=== PATIENT | female | born 1955 | race Caucasian/White ===

== ENCOUNTER → 2017-05-12 | Outpatient (CLI) | payer MEDICARE, BC ==
[2017-05-12 16:12] LABS: Calcium 11.3 mg/dL (8.4-10.2); Potassium 4.7 mmol/L (3.5-5.1); Total Bilirubin 0.7 mg/dL (0.2-1.3); Total Protein 8.2 g/dL (6.3-8.2)
== END | disposition home or self-care (01) ==
LOC: LABWHC1 15:21
PROVIDERS: ATTEND Internal Medicine Endocrinology, Diabetes & Metabolism
DX: E21.0 Primary hyperparathyroidism (principal)
CPT/HCPCS: 36415; 80053; 82306; 83970

== ENCOUNTER → 2017-05-26 | Outpatient (CLI) | payer MEDICARE, BC ==
--- NOTE | 2017-05-26 17:43 | US ---
EXAMINATION TYPE: US thyroid st tissue head/neck DATE OF EXAM: 05/26/2017 COMPARISON: NONE CLINICAL HISTORY: E21.0 Primary Hyperparathyroidism. GLAND SIZE: Right Lobe: 4.1 x 1.5 x 1.7 cm Overall Parenchyma: homogenous Left Lobe: 3.7 x 1.2x 0.8 cm Overall Parenchyma: homogeneous Isthmus Thickness: 0.3 cm NODULES RIGHT: # of nodules measured on right: 1 1. 0.3 X 0.2 x 0.1 cm hypoechoic solid nodule at the mid pole with well-defined margins. This nodu le is wider than tall and shows no intranodular vascularity. Prior size: no prior US here LEFT: # of nodules measured on left: 0 ISTHMUS: # of nodules measured in the isthmus: 0 Parathyroid Area: Inferior to right thyroid gland is oval,solid, hyperechoic nodule = 0.5 x 0.7 x 0.5 cm. Inferior to left thyroid gland is oval, hypoechoic nodule = 1.0 x 0.6 x 0.8cm. Bilateral neck scanned, no evidence of lymphadenopathy. IMPRESSION: No dominant thyroid mass. No definite evidence of a parathyroid mass. There is a oval-shaped hypoecho ic area at the lower pole left thyroid lobe that measures 10 x 8 mm and is probably a cyst.
== END | disposition home or self-care (01) ==
LOC: RADUSWWP 16:46
PROVIDERS: ATTEND Internal Medicine Endocrinology, Diabetes & Metabolism
DX: E21.0 Primary hyperparathyroidism (principal)
CPT/HCPCS: 76536

== ENCOUNTER → 2017-07-30 | Outpatient (CLI) | payer MEDICARE, BC ==
--- NOTE | 2017-07-30 14:47 | MR ---
EXAMINATION TYPE: MR brain wo/w con DATE OF EXAM: 07/30/2017 COMPARISON: NONE HISTORY: White matter changes TECHNIQUE: Multiplanar, multisequence images of the brain and brainstem is performed without and with IV contras t, utilizing 10 mL intravenous Gadavist . FINDINGS: No diagnostic evidence of acute ischemia. Changes of chronic sinusitis noted. Mild generalized degenerative change with numerous bilateral focal areas of abnormal signal in the wh ite matter. All measure 5 mm or less. No callosal lesions. No lesions perpendicular to ventricular sy stem. Craniocervical junction is maintained. Sella turcica has a normal appearance. No evidence of cerebellopontine angle mass. Hyperostosis frontalis interna noted. IMPRESSION: 1. Diffuse nonspecific white matter changes. Differential diagnosis includes remote microvascular isc hemia, hypertension, vasculitis, demyelinating disease or sarcoidosis. Correlate clinically.
== END | disposition home or self-care (01) ==
LOC: RADMRIMAIN 12:36
PROVIDERS: ATTEND Nurse Practitioner Acute Care
DX: R90.82 White matter disease, unspecified (principal); Z88.1 Allergy status to other antibiotic agents
CPT/HCPCS: 70553; A9581

== ENCOUNTER → 2018-02-22 | Outpatient (CLI) | payer MEDICARE, BC ==
--- NOTE | 2018-02-24 08:25 | MM ---
Reason for exam: screening (asymptomatic). Last mammogram was performed 2 years and 4 months ago. History: Patient is postmenopausal and is nulliparous. Physical Findings: A clinical breast exam by your physician is recommended on an annual basis and results should be correlated with mammographic findings. MG Screening Mammo w CAD Bilateral CC and MLO view(s) were taken. Prior study comparison: November 06, 2015, bilateral MG screening mammo w CAD. April 20, 2014, bilateral MG screening mammo w CAD. There are scattered fibroglandular densities. Focal asymmetry left upper outer quadrant, developing more conspicuous. This finding is changed when compared with previous exams. ASSESSMENT: Incomplete: need additional imaging evaluation, BI-RAD 0 RECOMMENDATION: Special view mammogram of the left breast. If lesion persists on supplemental views, image directed ultrasound is recommended. [facility] will attempt to contact patient to return for supplemental views and ultrasound if indicated.
== END | disposition home or self-care (01) ==
LOC: RADMAMWWP 11:20
PROVIDERS: ATTEND Family Medicine
DX: Z12.31 Encounter for screening mammogram for malignant neoplasm of breast (principal)
CPT/HCPCS: 77067

== ENCOUNTER → 2018-03-18 | Outpatient (CLI) | payer MEDICARE, BC ==
--- NOTE | 2018-03-21 07:11 | MM ---
Reason for exam: additional evaluation requested from abnormal screening. Last mammogram was performed 1 month ago. History: Patient is postmenopausal and is nulliparous. Physical Findings: Nurse did not find any significant physical abnormalities on exam. MG Work Up Mamm w CAD LT Spot compression CC, spot compression MLO, and ML view(s) were taken of the left breast. Prior study comparison: February 22, 2018, bilateral MG screening mammo w CAD. November 06, 2015, bilateral MG screening mammo w CAD. The breast tissue is heterogeneously dense. This may lower the sensitivity of mammography. The previously seen left upper outer focal asymmetry appears as fibroglandular tissue similar to the exam of 2014. These results were verbally communicated with the patient and result sheet given to the patient on 03/18/18. ASSESSMENT: Negative, BI-RAD 1 RECOMMENDATION: Return to routine screening mammogram schedule for both breasts.
== END | disposition home or self-care (01) ==
LOC: RADMAMWWP 15:39
PROVIDERS: ATTEND Family Medicine
DX: R92.8 Other abnormal and inconclusive findings on diagnostic imaging of breast (principal)
CPT/HCPCS: 77065

== ENCOUNTER → 2018-08-17 | Outpatient (CLI) | payer MEDICARE, BC ==
--- NOTE | 2018-08-18 06:16 | MR ---
EXAMINATION TYPE: MR brain wo/w con DATE OF EXAM: 08/17/2018 COMPARISON: Prior MRI brain July 30, 2017. HISTORY: White matter changes per order. TECHNIQUE: Multiplanar, multisequence images of the brain and brainstem is performed without and with IV contras t, utilizing 9 mL intravenous Gadavist gadolinium contrast is administered intravenously. Demyelinat ing disease protocol with additional Sagittal Flair sequence performed. FINDINGS: T2 Lesions Present : Yes Approximate Number of Lesions: Approximately 50-70 scattered small lesions Locations Identified : Scattered small lesions without infratentorial involvement redemonstrated. Size of Reference Lesion(s): 1. 0.6 x 0.4 x 0.4 cm on axial image 24 and sagittal image 14 posterior left frontal lesion at level of the centrum semiovale stable. Enhancing Lesion(s) Present: No T1 Hypointense Lesion(s) Present: Yes Change from Prior: Stable Diffusion weighted images demonstrate no evidence of a recent infarct or other diffusion abnormality. There is no worrisome extra-axial fluid collection. There is mild ventricular and sulcal prominence redemonstrated consistent with mild diffuse age-related cerebral atrophy. Midline structures demonstrate normal morphology. The craniocervical junction appears within normal limits. Post contrast images demonstrate no abnormal enhancement. The dural venous sinuses appear pa tent. The visualized sinuses are clear and the globes are intact. IMPRESSION: Mild diffuse age-related cerebral atrophy with moderate nonspecific white matter changes redemonstrated. No new or enhancing lesions are seen.
--- NOTE | 2018-08-18 06:25 | MR ---
EXAMINATION TYPE: MR lumbar spine wo con DATE OF EXAM: 08/17/2018 COMPARISON: Prior MRI lumbar spine March 19, 2014. HISTORY: Low back pain per order. Low back pain and sciatica for 3 months, pain into right lower extr emity per patient. TECHNIQUE: Multiplanar, multisequence imaging of the lumbar spine is performed without IV contrast. FINDINGS: Sagittal images of the lumbar spine show vertebral body heights heights to remain satisfact ory. There is grade 1 anterolisthesis of L4 on L5 slightly more prominent versus prior. Multilevel di sc desiccation is redemonstrated. There is moderate disc space narrowing L3-L4 level with posterior M odic type II endplate changes as there is increased T1 and T2 signal and mild to moderate anterior sp urring. Posterior disc herniation is now present at this level on sagittal images with superior exten riya. There is moderate to advanced disc space narrowing with vacuum disc phenomenon and heterogeneou s Modic type II degenerative changes at L5-S1 level redemonstrated. The conus medullaris remains stab le in position ending L1-L2 disc space level. Axial images show the T12-L1 and L1-L2 levels to remain within normal limits. Axial images at the L2-L3 level redemonstrate persistent mild/moderate facet degenerative changes and ligamentum flavum hypertrophy with some effacement the posterior lateral thecal sac on axial image 1 8. Bilateral neural foramina are patent. Axial images at the L3-L4 level now show moderate facet degenerative changes with ligamentum flavum h ypertrophy more prominent from prior effacing posterior lateral thecal sac on axial image 13. There i s moderate broad disc bulge with right paracentral/lateral recess superior extrusion seen best sagitt al image 9 and axial image 15 extending 9 mm superior to the disc space effacing anterolateral thecal sac. There is mild bilateral anterior inferior neural foraminal narrowing noted. Axial images at the L4-L5 level now show moderate to advanced facet degenerative changes bilaterally with ligamentum flavum hypertrophy effacing posterior lateral thecal sac near axial image 8. There is spondylolisthesis and broad-based posterior disc protrusion causing mild right-sided neural foramina l narrowing. Spinal canal is preserved. Left-sided neural foramen is patent. Axial images at the L5-S1 level show mild to moderate facet degenerative changes bilaterally. Spinal canal is preserved. Bilateral neural foramina are patent. There is suspected prominent but simple parapelvic cyst right kidney axial image 24 measuring roughly 3.4 cm long axis slightly larger versus prior. Left kidney is nonvisualized and may be congenitally absent. Correlate clinically. IMPRESSION: Multilevel degenerative changes in lumbar spine as detailed above. More prominent spondy lolisthesis L4-L5 level is noted. More prominent right sided disc herniation L3-L4 level is likely ac counting for patient's clinical symptoms. 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
== END ==
LOC: RADMRIMAIN 15:38
PROVIDERS: ATTEND Nurse Practitioner Acute Care
DX: M54.5 Low back pain (principal); G31.9 Degenerative disease of nervous system, unspecified; R90.82 White matter disease, unspecified
CPT/HCPCS: 82565; 70553; 72148; 36415; A9581

== ENCOUNTER → 2019-03-01 | Outpatient (CLI) | payer MEDICARE ==
--- NOTE | 2019-03-03 08:25 | MM ---
Reason for exam: screening (asymptomatic). Last mammogram was performed 11 months ago. History: Patient is postmenopausal and is nulliparous. Physical Findings: A clinical breast exam by your physician is recommended on an annual basis and results should be correlated with mammographic findings. MG Screening Mammo w CAD Bilateral CC, MLO, and XCCL view(s) were taken. Prior study comparison: March 18, 2018, left breast MG work up mamm w CAD LT. February 22, 2018, bilateral MG screening mammo w CAD. The breast tissue is heterogeneously dense. This may lower the sensitivity of mammography. No significant changes when compared with prior studies. ASSESSMENT: Negative, BI-RAD 1 RECOMMENDATION: Routine screening mammogram of both breasts in 1 year.
== END | disposition home or self-care (01) ==
LOC: RADMAMWWP 15:23
PROVIDERS: ATTEND Family Medicine
DX: Z12.31 Encounter for screening mammogram for malignant neoplasm of breast (principal)
CPT/HCPCS: 77067

== ENCOUNTER → 2020-07-30 | Outpatient (CLI) | payer MEDICARE ==
--- NOTE | 2020-07-30 15:57 | US ---
EXAMINATION TYPE: US extremity nonvasc mass RT DATE OF EXAM: 07/30/2020 COMPARISON: NONE CLINICAL HISTORY: R22.32 Localized mass right upper arm. Hyperechoic mass, probable lipoma measuring 1.2 x 0.6 x 1.0cm. IMPRESSION: 1. Subcutaneous hyperechoic mass could be a lipoma. Monitoring can be performed as clinically indicat ed.
== END | disposition home or self-care (01) ==
LOC: RADUSWWP 15:25
PROVIDERS: ATTEND Family Medicine
DX: R22.32 Localized swelling, mass and lump, left upper limb (principal)

== ENCOUNTER → 2020-11-19 | Outpatient (CLI) | payer MEDICARE ==
--- NOTE | 2020-11-21 13:54 | MM ---
Reason for exam: screening (asymptomatic). Last mammogram was performed 1 year and 9 months ago. History: Patient is postmenopausal and is nulliparous. Physical Findings: A clinical breast exam by your physician is recommended on an annual basis and results should be correlated with mammographic findings. MG Screening Mammo w CAD Bilateral CC and MLO view(s) were taken. Prior study comparison: March 01, 2019, bilateral MG screening mammo w CAD. March 18, 2018, left breast MG work up mamm w CAD LT. There are scattered fibroglandular densities. No significant changes when compared with prior studies. ASSESSMENT: Negative, BI-RAD 1 RECOMMENDATION: Routine screening mammogram of both breasts in 1 year.
== END | disposition home or self-care (01) ==
LOC: RADMAMWWP 14:49
PROVIDERS: ATTEND Family Medicine
DX: Z12.31 Encounter for screening mammogram for malignant neoplasm of breast (principal)
CPT/HCPCS: 77067

== ENCOUNTER → 2022-05-14 | Outpatient (CLI) | payer MEDICARE ==
[2022-05-15 13:34] LABS: Alt. alternata IgE Class CLASS 0; Alternaria alternata IgE <0.10 kU/L (<0.10); Asperg. fumagatus IgE <0.10 kU/L (<0.10); Asperg. fumagatus IgE Class CLASS 0; Candida albicans IgE Class CLASS 0; Clad herbarum IgE <0.10 kU/L (<0.10); Clad herbarum IgE Class CLASS 0; Latex IgE Class CLASS 0; Mucor racemosus IgE <0.10 kU/L (<0.10); Mucor racemosus IgE Class CLASS 0; Penicillium chrysogenum IgE <0.10 kU/L (<0.10); Penicillium chrysogenum IgE Cl CLASS 0
== END | disposition home or self-care (01) ==
LOC: LABWHC1 15:03
PROVIDERS: ATTEND Internal Medicine Sleep Medicine
DX: Z94.4 Liver transplant status (principal); Z79.899 Other long term (current) drug therapy
CPT/HCPCS: 36415; 82785; 86001; 86003; 86606; 86609

== ENCOUNTER → 2024-05-01 | Outpatient (CLI) | payer MEDICARE ==
--- NOTE | 2024-05-01 12:52 | CT ---
EXAMINATION TYPE: CT abdomen pelvis wo con DATE OF EXAM: 05/01/2024 COMPARISON: None HISTORY: 68-year-old female diarrhea, abnormal findings on prior xray CT DLP: 652 mGycm. Automated exposure control for dose reduction was used. TECHNIQUE: Contiguous axial scanning of the abdomen and pelvis without IV contrast. Coronal and sagit vick reconstructions performed. FINDINGS: The heart is normal size of the pericardial effusion. RCA coronary artery calcifications are noted. L janelle bases clear without pleural effusion. Noncontrast appearance of the liver, adrenal glands, and pancreas show no gross abnormality. Spleen mildly enlarged at 14.7 cm measured on coronal series. There is an area of 1.4 cm nodularity at the ampulla of Vater projecting into the duodenal lumen, cor onal image 41 and axial image 35. Endoscopic evaluation can exclude an ampullary mass. Suspect previous cholecystectomy. Left kidney appears to be surgically absent. Prominent cortical lobulations throughout the right kidney. There is mild fullness of the right renal collecting system but with normal caliber right ureter. Possible some degree of chronic UPJ strictur e. No dilated small bowel, free fluid, or free air. No mesenteric or retroperitoneal lymphadenopathy. No rmal appendix. Oral contrast progressed to the distal third transverse colon. No significant stool bu rden. No pericolonic inflammatory change. Bladder urine distended. Uterus is small and anteverted. Cystic change of the bilateral ovaries. Individual cysts suspected to measure up to 3.0 cm. Left ovar y itself measures 5.3 x 4.7 x 4.2 cm, enlarged with a volume of 52 mL. Left ovary measures 4.5 x 2.3 x 2.8 cm for a volume of 14.5 mL. No abnormal fluid collection in the pelvis or pelvic lymphadenopathy. Bones: Baastrup's disease. Hypertrophic facet arthropathy with degenerative grade 1 anterolisthesis L 4-L5. Moderate degenerative disc disease L3-L4. IMPRESSION: 1. Multiple cystic lesions of the bilateral ovaries. Individual cysts measure up to 3.0 cm and the le ft ovary is overall enlarged with a volume of 52 mL. Consider more detailed assessment with pelvic ul trasound and/or female pelvic MRI. STATUARY PAINTER referral recommended. 2. 1.4 cm soft tissue nodularity at the ampulla of Vater projecting into the duodenal lumen. Endoscop y can exclude a polyp or ampullary mass. 3. Left kidney surgically absent. There is fullness of the right renal collecting system which may be transient or could be due to some degree of stenosis at the UPJ. 4. Mild splenomegaly at 14.7 cm.
== END | disposition home or self-care (01) ==
LOC: RADCTMAIN 09:43
PROVIDERS: ATTEND Family Medicine
DX: N83.201 Unspecified ovarian cyst, right side (principal); N83.202 Unspecified ovarian cyst, left side; R16.1 Splenomegaly, not elsewhere classified
CPT/HCPCS: 74176

== ENCOUNTER 2024-07-28 10:52 | Day surgery (SDC) | payer MEDICARE ==
[2024-07-26 10:48] VITALS: BMI 28.9
[2024-07-28 11:26] VITALS: TEMP 97
[2024-07-28] MEDS: LACTATED RINGERS 1,000 ML IV SCH (11:42)
[2024-07-28] MEDS: IV FLUID CONTINUATION 1,000 ML IV ONE (11:43)
[2024-07-28 11:44] LABS: Glucose,Whole Blood 103 mg/dL (70-110)
[2024-07-28] MEDS ORDERED: LIDOCAINE 2% (PF) 20 MG/ML 5 ML VIAL ONE (12:45)
[2024-07-28] MEDS ORDERED: PROPOFOL 10 MG/ML 20 ML VIAL IV ONE (12:45)
--- NOTE | 2024-07-28 13:07 | P.PCN ---
Date of Procedure: 07/28/24 Procedure(s) Performed: Brief history: Patient is a pleasant 68-year-old white female scheduled for an elective upper endoscopy as well as colonoscopy as a part of evaluation of abdominal pain and chronic diarrhea for the last 20 years duration. She has 2-5 loose watery bowel movements daily. She had a CT of the abdomen/pelvis done that showed 1.4 cm nodularity the second part of the duodenum/rule out mass. She is not scheduled for an upper endoscopy as well as colonoscopy to evaluate further. Procedure performed: Esophagogastroduodenoscopy biopsy Colonoscopy with biopsy Preoperative diagnosis: Abnormal CT of the abdomen showing 1.5 cm nodularity in the second part of the duodenum Chronic diarrhea Anesthesia: MAC Procedure: After informed consent was obtained from the patient was brought into the endoscopy unit and IV sedation was administered by anesthesia under continuous monitoring. Initially upper endoscopy was done. The Olympus GF 160 video endoscope was inserted inserted into the mouth and esophagus intubated without any difficulty and was gradually advanced into the stomach and duodenum and carefully examined. The bulb of the duodenum appeared normal. In the second part of the duodenum the ampullary orifice appeared normal however the major papula appeared very prominent and biopsies were done from this area. No abnormal mucosa identified. The scope was then withdrawn into the stomach adequately insufflated with air and upon careful examination the antrum and body, cardia and fundus appeared normal. The scope was then withdrawn into the esophagus. The GE junction was located at 40 cm to the incisors. Small hiatal hernia noted. It appeared regular with no erythema erosions or ulcerations. Rest of the esophagus appeared normal. Patient tolerated the procedure well. At this time the patient continued to remain sedation. Initial digital rectal examination was normal. Olympus CF 160 video colonoscope was then inserted into the rectum and gradually advanced to the cecum without any difficulty. Careful examination was performed as the scope was gradually being withdrawn. The prep was excellent. The cecum, ascending colon, transverse colon, descending colon, sigmoid colon and rectum appeared normal. Biopsies were done from the ascending and descending colon rule out microscopic/collagenous colitis retroflexion was performed in the rectum and no lesions were noted. Patient tolerated the procedure well. Impression: 1. Upper endoscopy revealed prominent ampulla in the second part of the duodenum but no masses identified s/p biopsy and small hiatal hernia 2. Respiratory status diverticulosis but no evidence of colitis or colorectal neoplasia Recommendations: Findings of this examination were discussed with the patient as well as her family. She was advised to follow with the biopsy results. Recommended repeat screening colonoscopy in 10 years. Follow-up in the office in 2 weeks.
[2024-07-28 13:14] VITALS: RESP 16
[2024-07-28 13:30] VITALS: BP 113/71; PULSE 77
== END 2024-07-28 14:01 | disposition home or self-care (01) ==
LOC: ORWHC2ENDO 10:52
PROVIDERS: ATTEND Internal Medicine Gastroenterology
DX: K31.89 Other diseases of stomach and duodenum (principal); K44.9 Diaphragmatic hernia without obstruction or gangrene; K57.30 Diverticulosis of large intestine without perforation or abscess without bleeding; I10 Essential (primary) hypertension; J45.909 Unspecified asthma, uncomplicated; I67.9 Cerebrovascular disease, unspecified; K21.9 Gastro-esophageal reflux disease without esophagitis; Z88.0 Allergy status to penicillin; Z91.040 Latex allergy status; Z88.9 Allergy status to unspecified drugs, medicaments and biological substances; Z79.84 Long term (current) use of oral hypoglycemic drugs; Z79.85 Long-term (current) use of injectable non-insulin antidiabetic drugs; Z79.1 Long term (current) use of non-steroidal anti-inflammatories (NSAID); Z79.899 Other long term (current) drug therapy
CPT/HCPCS: 43239; 45380; 88305

== ENCOUNTER → 2024-08-03 | Outpatient (CLI) | payer MEDICARE ==
[2024-08-03 15:35] LABS: Blood Urea Nitrogen 24.9 mg/dL (9.0-27.0); Chloride 106 mmol/L (96-109); Glucose 151 mg/dL (70-110); Potassium 4.5 mmol/L (3.5-5.5); Sodium 140 mmol/L (135-145)
[2024-08-03 15:36] LABS: ALT 18 U/L (8-44); AST 26 U/L (13-35); Albumin 4.4 g/dL (3.8-4.9); Albumin/Globulin Ratio 1.63 Ratio (1.60-3.17); Alkaline Phosphatase 82 U/L (41-126); Bilirubin, Conjugated <0.20 mg/dL (0.20-0.40); Bilirubin,Unconjugated >0.20 mg/dL (0.20-1.00); Calcium 9.7 mg/dL (8.7-10.3); Carbon Dioxide 20.5 mmol/L (21.6-31.8); Globulin 2.7 g/dL (1.6-3.3); Total Bilirubin 0.4 mg/dL (0.3-1.2); Total Protein 7.1 g/dL (6.2-8.2)
[2024-08-03 16:41] LABS: Basophils # (A) 0.01 X 10*3/uL (0.00-0.10); Basophils % (A) 0.2 %; Eosinophils # (A) 0.08 X 10*3/uL (0.04-0.35); Eosinophils % (A) 1.9 %; HCT 39.4 % (37.2-46.3); Lymphocytes # (A) 1.16 X 10*3/uL (0.90-5.00); Lymphocytes % (A) 27.4 %; MCH 32.4 pg (27.0-32.0); MCV 98.3 FL (80.0-97.0); Mean Platelet Volume 10.4 FL (9.5-12.2); Monocytes # (A) 0.32 X 10*3/uL (0.20-1.00); Monocytes % (A) 7.5 %; NRBC Per 100 WBC 0 X 10*3/uL (0.00-0.01); Neutrophils # (A) 2.66 X 10*3/uL (1.80-7.70); Neutrophils % (A) 62.8 %; Platelet Count 157 X 10*3/uL (140-440); RBC 4.01 X 10*6/uL (4.10-5.20); RDW 13.6 % (11.5-14.5); WBC 4.24 X 10*3/uL (4.50-10.00)
== END | disposition home or self-care (01) ==
LOC: LABWHC1 10:48
PROVIDERS: ATTEND Internal Medicine Transplant Hepatology
DX: Z94.4 Liver transplant status (principal); Z79.899 Other long term (current) drug therapy
CPT/HCPCS: 36415; 80048; 80076; 80197; 85025

== ENCOUNTER → 2025-03-28 | Outpatient (CLI) | payer MEDICARE ==
--- NOTE | 2025-03-28 09:05 | US ---
EXAMINATION TYPE: US abdomen complete DATE OF EXAM: 03/28/2025 COMPARISON: CT(05/01/2024) CLINICAL INDICATION: Female, 69 years old with history of R10.12 LUQ PAIN; Cholecystectomy, Lt nephre ctomy TECHNIQUE: Grayscale and color Doppler imaging of the abdomen was performed. FINDINGS: EXAM MEASUREMENTS: Liver Length: 14.5 cm Gallbladder Wall: Surgically absent CBD: 0.6 cm, color Doppler imaging was utilized to isolate the common bile duct for measurement. Spleen: 12.5 cm Right Kidney: 12.3x5.0x6.0 cm Left Kidney: Surgically absent PROCESS ENGINEERING TECHNICIAN NOTES: slightly limited due to overlying bowel Pancreas: Tail obscured by overlying bowel gas Liver: heterogenous, course echotexture, ?sightly nodular Gallbladder: Surgically absent Evidence for sonographic Rosales's sign: No CBD: wnl Spleen: wnl Right Kidney: ?dilated renal pelvis, prominent cortical lobulations Left Kidney: Surgically absent Upper IVC: obscured by overlying bowel Abd Aorta: wnl as best visualized The liver is heterogeneously hyperechoic. This limits evaluation for focal masses. The visualized ab dominal aorta are within normal limits. Gallbladder is surgically absent. Common bile duct is unrema rkable. The visualized portions of the pancreas are homogenous. The spleen is unremarkable. Left ki dney is surgically absent. Right kidney redemonstrates prominent pelvis without significant calyceal dilatation consistent with extrarenal pelvis. Spleen remains upper limits of normal in size to mildly enlarged. IMPRESSION: No acute findings seen to account for patient's symptoms of left upper quadrant pain. [facility], , 03/28/2025 9:02 AM
== END | disposition home or self-care (01) ==
LOC: RADUSWWP 08:08
PROVIDERS: ATTEND Family Medicine
DX: R10.12 Left upper quadrant pain (principal); Z90.5 Acquired absence of kidney
CPT/HCPCS: 76700